=== PATIENT | female | born 1990 | race Caucasian/White ===

== ENCOUNTER 2021-07-17 14:23 | Emergency (ER) | payer MEDICAID ==
[~2021-07-17] VITALS: Ht 165.1 cm; Wt 59.0 kg
[2021-07-17 14:57] VITALS: BP 105/66
--- NOTE | 2021-07-17 15:19 | NUR ---
PT W/C ASSISTED TO BED 06.
[2021-07-17] MEDS ORDERED: KETOROLAC 30 MG/ML VIAL IVP ONE (15:55)
[2021-07-17] MEDS ORDERED: NACL 0.9% 1,000 ML IV ONE (15:55)
--- NOTE | 2021-07-17 16:00 | NUR ---
AT PT BEDSIDE
--- NOTE | 2021-07-17 16:02 | NUR ---
US AT PT BEDSIDE
--- NOTE | 2021-07-17 16:10 | NUR ---
31 Y/O FEMALE BIB SELF C/O ABDOMINAL PAIN RATED 10/10. PT DENIES N,V,D. PT STATES SHE DOES FEEL CONSTIPATED. PT STATED SHE TOOK EXCEDRIN, TUMS AND MIDOL WITH NO PAIN IMPROVEMENT. PT STATES SHE ALSO TOOK A LAXATIVE WHICH RELIEVED HER CONSTIPATION BUT DID NOT RELIEVE HER PAIN. PT IS ON HER PERIOD, BUT DENIED EXCESSIVE VAGINAL BLEEDING. PT A&OX4. BED IN LOWEST POSITION. BED RAIL X1. MEDHX: DENIES ALLERGIES: Z DAMIAN SURGERIES: APPENDECTOMY
[2021-07-17 16:36] LABS: BASOPHILS # (AUTO) 0.1 K/uL (0.00-0.22); BASOPHILS % (AUTO) 0.4 % (0.0-2.0); EOSINOPHILS # (AUTO) 0.1 K/uL (0-0.4); EOSINOPHILS % (AUTO) 0.4 % (0.0-4.0); HEMATOCRIT 38.7 % (36-48); HEMOGLOBIN 12.4 g/dL (12.0-16.0); LYMPHOCYTES % (AUTO) 7.2 % (20.5-51.1); MEAN CORPUSCULAR HEMOGLOBIN 25 pg (27-31); MEAN CORPUSCULAR HGB CONC 32 g/dL (33-37); MONOCYTES # (AUTO) 0.8 K/uL (0.8-1.0); MONOCYTES % (AUTO) 5.9 % (1.7-9.3); NEUTROPHILS # (AUTO) 12.1 K/uL (1.8-7.7); NEUTROPHILS % (AUTO) 86.1 % (42.2-75.2); PLATELET COUNT (AUTO) 341 K/uL (140-450); RED BLOOD CELL COUNT(AUTO) 4.97 MIL/uL (4.20-5.40); RED CELL DISTRIBUTION WIDTH 15.6 % (11.6-13.7); WHITE BLOOD COUNT (AUTO) 14.1 K/uL (4.8-10.8)
[2021-07-17 17:10] LABS: ALBUMIN 3.3 g/dL (3.4-5.0); ANION GAP 12.2 (8-16); CARBON DIOXIDE 25.2 mmol/L (21-32); CREATININE 0.8 mg/dL (0.6-1.3); POTASSIUM 3.4 mmol/L (3.5-5.1); TOTAL BILIRUBIN 0.4 mg/dL (0.0-1.0)
[2021-07-17] MEDS ORDERED: KETOROLAC 30 MG/ML VIAL ONE (17:15)
--- NOTE | 2021-07-17 18:10 | NUR ---
PT RESTING IN NO APPARENT DISTRESS, EVEN AND UNLABORED BREATHING. WILL CONTINUE TO MONITOR.
[2021-07-17] MEDS ORDERED: ACET-10509 PO ×2 (18:24→18:31)
[2021-07-17] MEDS ORDERED: IBUP-2213 PO ×2 (18:24→18:31)
[2021-07-17 18:39] VITALS: BP 105/66
--- NOTE | 2021-07-17 18:40 | NUR ---
Patient discharged with v/s stable. Written and verbal after care instructions given and explained. Patient alert, oriented and verbalized understanding of instructions. Ambulatory with steady gait. All questions addressed prior to discharge. ID band removed. Patient advised to follow up with PMD. Rx of TYLENOL,IBUPROFEN given. Patient educated on indication of medication including possible reaction and side effects. Opportunity to ask questions provided and answered.
== END 2021-07-17 18:40 | disposition home or self-care (01) ==
LOC: MED 14:23
DX: N83.201 Unspecified ovarian cyst, right side (principal); Z79.899 Other long term (current) drug therapy; Z90.49 Acquired absence of other specified parts of digestive tract
CPT/HCPCS: 36415; 76830; 80053; 81025; 83690; 84702; 85025; 96361; 96374; 99284; J1885; J7030; Q0092